=== PATIENT | male | born 1975 | race American Indian/Alaskan Native ===

== ENCOUNTER 2017-10-04 18:44 | Emergency (ER) | payer MEDICAID ==
[2017-10-04 20:09] VITALS: O2SAT 96
--- NOTE | 2017-10-04 20:53 | C.PDOC ---
History Of Present Illness 42 year old male presents to the ED for evaluation of left hip pain which began around 3 days ago. Patient states pain is exacerbated by movement. He denies fever, chills, extremity numbness/weakness, or known trauma/injury to the affected area, or recent falls. Chief Complaint (Nursing): Hip Pain History Per: Patient History/Exam Limitations: no limitations Onset/Duration Of Symptoms: Days (3) Current Symptoms Are (Timing): Still Present Additional History Per: Patient - Hip Description Of Injury: denies: Fell, Tripped, Struck With Object Past Medical History Reviewed: Historical Data, Nursing Documentation, Vital Signs Vital Signs: Last Vital Signs Temp 98.4 F 10/04/17 20:02 Pulse 87 10/04/17 20:02 Resp 16 10/04/17 20:02 BP 138/84 10/04/17 20:02 Pulse Ox 96 10/04/17 22:07 - Medical History PMH: Anemia, HTN, End Stage Renal Disease Surgical History: No Surg Hx Family History: States: Unknown Family Hx - Social History Hx Alcohol Use: No Hx Substance Use: Yes - Immunization History Hx Tetanus Toxoid Vaccination: No Hx Influenza Vaccination: No Hx Pneumococcal Vaccination: No Review Of Systems Constitutional: Negative for: Fever, Chills Musculoskeletal: Positive for: Other (left hip pain ) Neurological: Negative for: Weakness, Numbness Physical Exam - Physical Exam Appears: Non-toxic, No Acute Distress Skin: Normal Color, Warm, Dry Extremity: No Normal ROM (slightly decreased, secondary to pain ), Tenderness ( to left hip on palpation ), Capillary Refill (less than 2 seconds ), No Deformity, No Swelling Neurological/Psych: Oriented x3, Normal Speech, Normal Cognition, Normal Sensation ED Course And Treatment O2 Sat by Pulse Oximetry: 96 (on RA) Pulse Ox Interpretation: Normal - CT Scan/US CT left hip Other Rad Studies (CT/US): Interpreted By Me, Read By Radiologist, Radiology Report Reviewed CT/US Interpretation: EXAM: CT Left Lower Extremity Without Intravenous Contrast, Hip. CLINICAL HISTORY: 42 years old, male; Pain; Hip; Left; Additional info: Severe pain/ tenderness. TECHNIQUE: Axial computed tomography images of the left hip without intravenous contrast. All CT scans at this. facility use one or more dose reduction techniques, viz.: automated exposure control; ma/kV. adjustment per patient size (including targeted exams where dose is matched to indication; i.e. head);. or iterative reconstruction technique. Coronal and sagittal reformatted images were created and reviewed. COMPARISON: No relevant prior studies available. FINDINGS: Bones/joints: Patchy sclerosis of the left femoral head is identified consistent with osteonecrosis. The. articular surface is intact. No evidence of a subchondral fracture. Soft tissues: Unremarkable. IMPRESSION: Findings indicative of osteonecrosis of the left femur for which a dedicated noncontrast enhanced. MRI is recommended as non-emergent followup. No evidence of articular surface collapse. Progress Note: CT Left Hip ordered and reviewed. Toradol IM administered. Disposition Counseled Patient/Family Regarding: Diagnosis - Disposition Referrals: [facility] [Outside] Disposition: HOME/ ROUTINE Disposition Time: 22:05 Condition: STABLE Prescriptions: Naproxen 375 mg PO TIDPC #20 tablet Instructions: Hip Pain (ED) Forms: [facility] (Lithuanian) - POA Present On Arrival: None - Clinical Impression Clinical Impression: Hip pain, Osteonecrosis - Scribe Statement The provider has reviewed the documentation as recorded by the Scribe (Caren Moran) Provider Attestation: All medical record entries made by the Scribe were at my direction and personally dictated by me. I have reviewed the chart and agree that the record accurately reflects my personal performance of the history, physical exam, medical decision making, and the department course for this patient. I have also personally directed, reviewed, and agree with the discharge instructions and disposition.
--- NOTE | 2017-10-04 21:47 | CT ---
EXAM: CT Left Lower Extremity Without Intravenous Contrast, Hip CLINICAL HISTORY: 42 years old, male; Pain; Hip; Left; Additional info: Severe pain/ tenderness TECHNIQUE: Axial computed tomography images of the left hip without intravenous contrast. All CT scans at this facility use one or more dose reduction techniques, viz.: automated exposure control; ma/kV adjustment per patient size (including targeted exams where dose is matched to indication; i.e. head); or iterative reconstruction technique. Coronal and sagittal reformatted images were created and reviewed. COMPARISON: No relevant prior studies available. FINDINGS: Bones/joints: Patchy sclerosis of the left femoral head is identified consistent with osteonecrosis. The articular surface is intact. No evidence of a subchondral fracture. Soft tissues: Unremarkable. IMPRESSION: Findings indicative of osteonecrosis of the left femur for which a dedicated noncontrast enhanced MRI is recommended as non-emergent followup. No evidence of articular surface collapse.
[2017-10-04 22:33] VITALS: BP 147/90; PULSE 63; RESP 18; TEMP 97.9
== END 2017-10-04 22:32 | disposition home or self-care (01) ==
LOC: C.ER 18:44
DX: M25.552 Pain in left hip (principal); M87.9 Osteonecrosis, unspecified
CPT/HCPCS: 73700; 96372; 99283; J1885